=== PATIENT | male | born 1980 | race Caucasian/White ===

== ENCOUNTER 2023-07-16 06:15 | Day surgery (SDC) | payer BC ==
[2023-07-13 13:04] VITALS: BMI 25.8
[2023-07-16] MEDS ORDERED: HYDROmorphone 0.5 MG/0.5 ML SYRINGE IVP PRN (07:00)
[2023-07-16] MEDS: ACETAMINOPHEN TAB 500 MG TAB PO PRN (07:01)
[2023-07-16] MEDS: DEXAMETHASONE SOD PHOSPHATE 4 MG/ML 1 ML VIAL IV ONE (07:02)
[2023-07-16] MEDS: ONDANSETRON 4 MG/2 ML VIAL IVP ONE (07:03)
[2023-07-16] MEDS: HEPARIN SODIUM,PORCINE 5,000 UNIT/ML 1 ML VIAL SQ PRN (07:06)
--- NOTE | 2023-07-16 07:06 | P.GSHP ---
History of Present Illness H&P Date: 07/16/23 Chief Complaint: Umbilical hernia, right axillary lipoma 43-year-old male here for elective repair umbilical hernia and excision axillary mass. Last seen in the office in November. Umbilical hernia enlarging slowly over time. Mild pain at times. Past Medical History Past Medical History: No Reported History History of Any Multi-Drug Resistant Organisms: None Reported Past Surgical History: Back Surgery Additional Past Surgical History / Comment(s): LAMINECTOMY Past Anesthesia/Blood Transfusion Reactions: No Reported Reaction Smoking Status: Former smoker, Vaper - Past Family History Mother Family Medical History: No Reported History Medications and Allergies Home Medications Medication Instructions Recorded Confirmed Type No Known Home Medications 07/13/23 07/16/23 History Allergies Allergy/AdvReac Type Severity Reaction Status Date / Time crab Allergy Anaphylaxis Verified 07/16/23 06:42 lobster Allergy Anaphylaxis Verified 07/16/23 06:42 Surgical - Exam Vital Signs Temp Pulse Resp BP Pulse Ox 96..7 F H 69 16 120/72 98 07/16/23 06:48 07/16/23 06:48 07/16/23 06:48 07/16/23 06:48 07/16/23 06:48 Physical exam: General: Well-developed, well-nourished HEENT: Normocephalic, sclerae nonicteric Abdomen: Nontender, nondistended, reducible umbilical hernia Extremities: No edema, mass right axilla 5 cm Neuro: Alert and oriented Assessment and Plan (1) Umbilical hernia Narrative/Plan: 43-year-old male with reducible umbilical hernia and axillary mass. Will proceed with open repair umbilical hernia with probable mesh and excision of right axillary mass. Risks of bleeding, infection, recurrence, bladder and bowel injury, numbness, nerve injury, conversion to an open procedure were discussed with the patient. The patient understands and wishes to proceed. Current Visit: Yes Status: Acute Code(s): K42.9 - UMBILICAL HERNIA WITHOUT OBSTRUCTION OR GANGRENE SNOMED Code(s): 458966543
[2023-07-16] MEDS: LACTATED RINGERS 1,000 ML IV SCH (07:19)
[2023-07-16] MEDS ORDERED: ePHEDrine 50 MG/ML 1 ML VIAL ONE (07:23)
[2023-07-16] MEDS ORDERED: NEOSTIGMINE 1 MG/ML 10 ML VIAL ONE (07:23)
[2023-07-16] MEDS ORDERED: PHENYLEPHRINE 10 MG/ML VIAL ONE (07:23)
[2023-07-16] MEDS ORDERED: SUCCINYLCHOLINE CHLORIDE 200 MG/10 ML VIAL IV ONE (07:23)
[2023-07-16] MEDS ORDERED: ROCURONIUM 10 MG/ML (5 ML VIAL) IV ONE (07:23)
[2023-07-16] MEDS ORDERED: MIDAZOLAM 2 MG/2 ML VIAL ONE (07:23)
[2023-07-16] MEDS ORDERED: fentaNYL (PF) 50 MCG/ML 2 ML AMP ONE (07:23)
[2023-07-16] MEDS ORDERED: GLYCOPYRROLATE 0.2 MG/ML 2 ML VIAL ONE (07:23)
[2023-07-16] MEDS ORDERED: LIDOCAINE 1% INJ 10MG/ML (20 ML MDV) ONE (07:23)
[2023-07-16] MEDS ORDERED: PROPOFOL 10 MG/ML 20 ML VIAL IV ONE (07:23)
[2023-07-16 07:37] VITALS: RESP 16
[2023-07-16] MEDS: BUPIVACAINE (PF) 0.25% 30 ML VIAL SQ ONE ×3 (07:43→08:33)
--- NOTE | 2023-07-16 09:11 | P.OP ---
Date of Procedure: 07/16/23 Procedure(s) Performed: PREOPERATIVE DIAGNOSIS: Reducible umbilical hernia, right axillary mass POSTOPERATIVE DIAGNOSIS: Same PROCEDURE: Open repair reducible umbilical hernia with mesh, excision right axillary mass, intermediate closure SURGEON: Dr. Hoffman ANESTHESIA: General OPERATIVE PROCEDURE DETAILS: The patient was placed in the operating table in the supine position. A curvilinear supraumbilical incision was made using the scalpel. The subcutaneous tissues were dissected bluntly and with cautery. The hernia sac was identified. The umbilical attachments to the fascia were divided using electrocautery. The hernia sac was reduced. The defect in the fascia measured 1.8 x 1.0 cm. The fat overlying the fascia was dissected. No additional defects were seen. The preperitoneal space was then dissected using blunt dissection and electrocautery. The 4.3 cm ventral ex mesh was placed beneath the fascia and sutured in place using trans-fascial 0 Ethibond sutures. The defect was closed using interrupted vest over pants 0 Ethibond mattress sutures. The subcutaneous tissues were reapproximated using inverted 2-0 & 3-0 Vicryl sutures. The umbilicus was tacked back down to the fascia using a 2-0 Vicryl suture. The skin was closed using 4-0 Monocryl sutures. Skin glue and sterile dressings were then applied. Next the right axilla was addressed. This was already prepped. A horizontal incision was made overlying the palpable mass. The subcutaneous tissues superficially were dissected with cautery. The lipomatous mass was fully excised using blunt dissection and cautery. This measured approximately 5.5 x 4 cm. This was sent to pathology. Subcutaneous tissues were then closed using interrupted 3-0 Vicryl sutures. Skin closed using a running 4-0 Monocryl stitch. Skin glue and sterile dressings applied. HERNIA CHARACTERISTICS: Length: 1 cm Width: 1.8 cm Type: Reducible umbilical TYPE OF MESH USED: Ventral X 4.3 cm LOCATION OF MESH: [place] FIXATION: 0 Ethibond PREOPERATIVE DISCUSSION ON SMOKING CESSASTION: Yes PREOPERATIVE DISCUSSION ON MORBID OBESITY: Yes PREOPERATIVE DISCUSSION ON APPROPRIATE USE OF NARCOTIC USE: Yes PREOPERATIVE EDUCATION: Multi Modal, Smoking Cessation and Weight Loss with BMI over 35. DISPOSITION: Stable to recovery room
[2023-07-16 10:30] VITALS: BP 133/83; PULSE 66
[2023-07-16] MEDS ORDERED: ACETAMINOPHEN TAB 325 MG TAB PO SCH (12:00)
[2023-07-16] MEDS ORDERED: IBUPROFEN 600 MG TAB PO SCH (14:00)
== END 2023-07-16 10:18 | disposition home or self-care (01) ==
LOC: OR 06:15
PROVIDERS: ATTEND Surgery
DX: K42.9 Umbilical hernia without obstruction or gangrene (principal); D17.21 Benign lipomatous neoplasm of skin and subcutaneous tissue of right arm; Z87.891 Personal history of nicotine dependence; Z79.899 Other long term (current) drug therapy
CPT/HCPCS: 88304; 49591; 11406; C1781; J2250; J0330; J1644; J1100; J2710; J0690; J2405; J2001; J3010; J2704; J2371; J0665